=== PATIENT | female | born 1990 | race Caucasian/White ===

== ENCOUNTER 2017-05-03 11:55 | Emergency (ER) | payer OTHER ==
[~2017-05-03] VITALS: Wt 54.5 kg
[2017-05-03] MEDS ORDERED: ALPRAZOLAM 1 MG TAB PO ONE (13:00)
[2017-05-03] MEDS ORDERED: ALPR1TAB2 PO (13:47)
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
== END 2017-05-03 14:34 | disposition home or self-care (01) ==
LOC: FTE 11:55
DX: F41.9 Anxiety disorder, unspecified (principal); T59.811A Toxic effect of smoke, accidental (unintentional), initial encounter
CPT/HCPCS: Z7502; Z7610; 99283

== ENCOUNTER 2017-06-10 16:26 | Emergency (ER) | payer OTHER ==
[~2017-06-10] VITALS: Ht 170.2 cm; Wt 53.0 kg
[~2017-06-10 16:26] MED LIST: ALPR1TAB2 PO
[2017-06-10 16:51] VITALS: Ht 170.2 cm; Wt 53.0 kg
[2017-06-10] MEDS ORDERED: LORAZEPAM 0.5 MG TAB PO ONE (20:30)
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
== END 2017-06-10 21:32 | disposition left against medical advice (07) ==
LOC: FTE 16:26
DX: F41.9 Anxiety disorder, unspecified (principal)
CPT/HCPCS: Z7502; Z7610; 99283